=== PATIENT | male | born 1975 | race Caucasian/White ===

== ENCOUNTER → 2017-04-05 | Outpatient (CLI) | payer MEDICARE ==
[~2017-04-05] MED LIST: ASPIRIN 81MG TA81 MG PO; ASPIRIN CHILDRE81 M2 PO; CARVEDILOL3.125 MG PO; COREG 3.125M3.125 MG PO; GABAPENTIN300 MG PO; GLIMEPIRIDE 2MG2 MG PO; LIPITOR20 MG PO; LISINOPRIL 5MG T5 MG NG; LORTAB 5/500 501 TAB PO; MELOXICAM15 MG PO; MEN'S MULTIVITA1 TA1 PO; METFORMIN500 MG PO; NIACIN500 MG PO; NOMEDS; PREDNISONE50 MG PO; PRILOSEC20 M1 PO; TRAZODONE 50MG50 MG PO; VITAMIN D3400 I1 PO; WELLBUTRIN XL300 MG PO; ZETIA10 MG PO
[2017-04-05 09:45] LABS: BUN 14 mg/dL (7-18)
[2017-04-05 09:49] LABS: GFR (ESTIMATED) 107 ML/MIN (>60)
--- NOTE | 2017-04-06 06:32 | RADIOLOGY REPORT PS360 ---
CT ABD PELVIS W/ CONTRAST CLINICAL INDICATION: Left lower quadrant pain LEFT PELVIC TENDER,POSS HERNIA ORDERING PHYSICIAN: Jarrett Yang MD PATIENT AGE: 41 years COMPARISON: None TECHNIQUE: Axial images obtained with sagittal and coronal reformats. PROCEDURE: Oral Contrast: Redicat IV Contrast: 75 mm [id number]. FINDINGS: Lung bases are clear. There are multiple gallstones. No obvious biliary dilatation. The liver, spleen, adrenal glands, and pancreas have an unremarkable appearance. No renal calculi or ureteral calculi. No obvious renal mass. No hydronephrosis. Unremarkable appendix. Colonic diverticulosis involves the descending and sigmoid colon. No evidence of diverticulitis. No pelvic mass or abnormal fluid collection or focal inflammatory change. There is a small left-sided indirect inguinal hernia containing fat. Postsurgical changes are present at L4 and L5 with interpedicular screws. No acute bony anomalies are evident. IMPRESSION: 1. Cholelithiasis. 2. Small left indirect inguinal hernia containing fat.
== END ==
LOC: RAD 09:19
PROVIDERS: Surgery
DX: R19.07 Generalized intra-abdominal and pelvic swelling, mass and lump (principal)
CPT/HCPCS: Q9967